=== PATIENT | male | born 1955 | race Caucasian/White ===

== ENCOUNTER 2016-10-18 10:56 | Observation (INO) | payer OTHER ==
[~2016-10-18] VITALS: Ht 182.9 cm; Wt 65.8 kg
[2016-10-18 13:52] LABS: HEMOGLOBIN 17.7 gm/dl (14.0-17.5); RED BLOOD COUNT 5.28 M/UL (4.20-5.50); WHITE BLOOD COUNT 11.1 K/UL (4.5-11.0)
[2016-10-18 14:17] LABS: BUN/CREATININE RATIO 9 (0-10)
[2016-10-18] MEDS ORDERED: PRILOSEC OTC20 MG PO ×2 (19:27→19:29)
[2016-10-18] MEDS ORDERED: PAXIL20 MG PO (19:29)
[2016-10-19 02:22] LABS: HEMOGLOBIN 16.8 gm/dl (14.0-17.5); RED BLOOD COUNT 5.07 M/UL (4.20-5.50); WHITE BLOOD COUNT 8.9 K/UL (4.5-11.0)
[2016-10-19] MEDS ORDERED: LIPITOR TAB 2020 MG PO (15:57)
[2016-10-19] MEDS ORDERED: ASPIR 8181 MG PO (15:57)
[2016-10-19] MEDS ORDERED: LISINOPRIL5 MG PO (15:58)
== END 2016-10-19 17:21 | disposition home or self-care (01) ==
LOC: ER1 10:56 → ZEROF 15:23 → M/S 18:30
PROVIDERS: Physician Assistant; ADMIT Internal Medicine
DX: R25.1 Tremor, unspecified (principal); R20.0 Anesthesia of skin; I10 Essential (primary) hypertension; F17.210 Nicotine dependence, cigarettes, uncomplicated; Z86.59 Personal history of other mental and behavioral disorders; Z87.19 Personal history of other diseases of the digestive system; Z79.82 Long term (current) use of aspirin; Z79.899 Other long term (current) drug therapy
CPT/HCPCS: ECHO; 36415; 70450; 71020; 80053; 80061; 81001; 82550; 82553; 83036; 83874; 84484; 85025; 85610; 85730; 93005; 93306; 93880; 96372; 99285; G0378; J1650